=== PATIENT | female | born 1990 | race Caucasian/White ===

== ENCOUNTER 2018-07-09 00:56 | Emergency (ER) | payer MEDICAID, OTHER ==
[~2018-07-09] VITALS: Wt 92.8 kg
[2018-07-09] MEDS ORDERED: SOD CHLORIDE 0.9% 1,000 ML IV STA (01:15)
[2018-07-09] MEDS ORDERED: ONDANSETRON 4 MG INJ IV STA ×2 (01:15→01:37)
[2018-07-09] MEDS ORDERED: KETOROLAC 15 MG INJ IV STA (01:15)
[2018-07-09] MEDS ORDERED: ONDA4TAB14 PO (01:49)
[2018-07-09] MEDS ORDERED: DICY10CA40 PO (01:49)
[2018-07-09] MEDS ORDERED: NITR-58 PO (01:53)
--- NOTE | 2018-07-09 01:53 | ERD ---
ER Documentation Chief Complaint Chief Complaint mid epigastric pain since this afternoon - pt not in distress HPI Patient is a 28-year-old female with no past medical history presents ER for concerns of epigastric pain along with nausea and vomiting that started around 5 PM today. Patient states she has had bloating as well. Patient states presently 15-20 minutes ago she developed diarrhea. Patient denies any fevers or chills. Patient does not recall anything unusual. Patient denies any recent travel. No recent antibiotic use. Patient has no cough, rhinorrhea, headache or neck stiffness. Patient describes her abdominal pain to be localized to the epigastric region. Patient denies any radiation of the pain. No recent travel. No sick contacts. ROS All systems reviewed and are negative except as per history of present illness. Medications Home Meds Active Scripts Nitrofurantoin Monohyd Macrocr* (Macrobid*) 100 Mg Capsr, 100 MG PO BID for 5 Days, CAP Prov:KATINA TRAN PA-C 07/09/18 Ondansetron (Ondansetron Odt) 4 Mg Tab.rapdis, 4 MG PO Q6H PRN for NAUSEA AND/OR VOMITING, #10 TAB Prov:KATINA TRAN PA-C 07/09/18 Dicyclomine HCl (Dicyclomine HCl) 10 Mg Capsule, 10 MG PO TID PRN for ABDOMINAL CRAMPING, #20 CAP Prov:KATINA TRAN PA-C 07/09/18 Allergies Allergies: Coded Allergies: No Known Allergy (Unverified , 05/14/12) PMhx/Soc History of Surgery: No Anesthesia Reaction: No Hx Neurological Disorder: No Hx Respiratory Disorders: No Hx Cardiac Disorders: No Hx Psychiatric Problems: No Hx Miscellaneous Medical Probl: No Hx Alcohol Use: No Hx Substance Use: No Hx Tobacco Use: No Smoking Status: Never smoker FmHx Family History: No diabetes Physical Exam Vitals Physical Exam GENERAL: Well-developed, well-nourished female. Appears in no acute distress. HEAD: Normocephalic, atraumatic. EYES: Pupils are equally reactive bilaterally. EOMs grossly intact. No conjunctival erythema. ENT: Moist mucous membranes. No uvula deviation. No kissing tonsils. NECK: Supple. No meningismus. Normal range of motion of the neck. LUNG: Clear to auscultation bilaterally. No rhonchi, wheezing, rales or coarse breath sounds. HEART: Regular rate and rhythm. No murmurs, rubs or gallops. ABDOMEN: No scars, ecchymosis or rashes noted. Soft,, and nondistended. Minimally tender to palpation in the epigastric region. Positive bowel sounds in all four quadrants. No rebound tenderness, no guarding. (-) McBurney's point tenderness. No CVA tenderness. EXTREMITIES: Equal pulses bilaterally. No peripheral clubbing, cyanosis or edema. No unilateral leg swelling. NEUROLOGIC: Alert and oriented. Moving all four extremities without any difficulty. Normal speech. Steady gait. SKIN: Normal color. Warm and dry. No rashes or lesions. Results 24 hrs Laboratory Tests Test 07/09/18 01:26 07/09/18 01:30 White Blood Count 12.3 10^3/ul Red Blood Count 4.59 10^6/ul Hemoglobin 12.4 g/dl Hematocrit 37.5 % Mean Corpuscular Volume 81.7 fl Mean Corpuscular Hemoglobin 27.0 pg Mean Corpuscular Hemoglobin Concent 33.1 g/dl Red Cell Distribution Width 14.6 % Platelet Count 228 10^3/UL Mean Platelet Volume 10.6 fl Immature Granulocytes % 0.400 % Neutrophils % 86.8 % Lymphocytes % 7.3 % Monocytes % 4.5 % Eosinophils % 0.8 % Basophils % 0.2 % Nucleated Red Blood Cells % 0.0 /100WBC Immature Granulocytes # 0.050 10^3/ul Neutrophils # 10.7 10^3/ul Lymphocytes # 0.9 10^3/ul Monocytes # 0.6 10^3/ul Eosinophils # 0.1 10^3/ul Basophils # 0.0 10^3/ul Nucleated Red Blood Cells # 0.0 10^3/ul Urine Color YELLOW Urine Clarity CLOUDY Urine pH 7.0 Urine Specific [place] 1.029 Urine Ketones NEGATIVE mg/dL Urine Nitrite NEGATIVE mg/dL Urine Bilirubin NEGATIVE mg/dL Urine Urobilinogen 1+ mg/dL Urine Leukocyte Esterase 1+ Cherelle/ul Urine Microscopic RBC 1 /HPF Urine Microscopic WBC 6 /HPF Urine Squamous Epithelial Cells MANY /HPF Urine Bacteria FEW /HPF Urine Mucus MODERATE /HPF Urine Hemoglobin NEGATIVE mg/dL Urine Glucose NEGATIVE mg/dL Urine Total Protein 1+ mg/dl Sodium Level 142 mmol/L Potassium Level 4.2 mmol/L Chloride Level 109 mmol/L Carbon Dioxide Level 20 mmol/L Anion Gap 13 Blood Urea Nitrogen 13 mg/dl Creatinine 0.70 mg/dl Est Glomerular Filtrat Rate mL/min > 60 mL/min Glucose Level 134 mg/dl Calcium Level 9.1 mg/dl Total Bilirubin 0.9 mg/dl Direct Bilirubin 0.00 mg/dl Indirect Bilirubin 0.9 mg/dl Aspartate Amino Transf (AST/SGOT) 41 IU/L Alanine Aminotransferase (ALT/SGPT) 58 IU/L Alkaline Phosphatase 86 IU/L Total Protein 8.0 g/dl Albumin 4.4 g/dl Globulin 3.60 g/dl Albumin/Globulin Ratio 1.22 Lipase 91 U/L POC Beta HCG, Qualitative NEGATIVE Current Medications Medications Dose Sig/Jaylan Start Time Status Last (Trade) Ordered Route PRN Stop Time Admin Dose Reason Admin Sodium 1,000 ml @ Q1H STAT 07/09/18 DC 07/09/18 Chloride 1,000 mls/hr IV 01:15 01:43 07/09/18 03:29 Ondansetron 4 mg ONCE STAT 07/09/18 DC 07/09/18 HCl (Zofran IV 01:15 01:43 Inj) 07/09/18 01:16 Ketorolac 15 mg ONCE STAT 07/09/18 DC 07/09/18 Tromethamine IV 01:15 01:43 (Toradol) 07/09/18 01:16 Ondansetron 4 mg ONCE STAT 07/09/18 DC HCl (Zofran IV 01:37 Inj) 07/09/18 01:38 Procedures/MDM MEDICAL DECISION MAKING: This is a 28-year-old female who presents with epigastric pain, nausea, vomiting and diarrhea which started earlier today.. Vital signs were reviewed. Patient is afebrile. Patient was not hypoxic. IV line was established.Patient was given IV fluids, Zofran and Toradol IV. Blood work was obtained. CBC showed WBC count of 13.3. No evidence of severe anemia. Elevated WBC count is likely due to vomiting. CMP showed no severe electrolyte abnormalities, acidosis, alkalosis, renal failure, kidney failure. UA did show 1+ leukocyte esterase. Patient will be treated for concerns of UTI at this time. Urine test was negative. Upon reexamination, patient reported improvement in symptoms. Patient likely has a viral gastroenteritis. Hydration advised. BRAT diet discussed. DDX included but was not limited to dehydration, acute coronary syndrome, AAA, mesenteric ischemia, lower lobe pneumonia, DKA, bowel perforation, cholecystitis, femi docholithiasis, ascending cholangitis, hepatic abscess, pancreatitis, PUD, splenic rupture, diverticulitis, UTI, pyelonephritis, nephrolithiasis, appendicitis, constipation, , ectopic , PID, ovarian torsion or tubo-ovarian abscess. Patient was nontoxic, non ill appearing prior to dischargw. Vitals signs were within normal limits at time of discharge. PRESCRIPTIONS: Talon Vera DISCHARGE: At this time, patient is stable for discharge and outpatient management. I have instructed the patient to follow-up with his/her primary care physician in 1-2 days. I have instructed the patient to promptly return to the ER at any time for any new or worsening symptoms including increased pain, nausea, vomiting, diarrhea, fever, weakness or LOC. The patient and/or family expressed understanding of and agreement with this plan. All questions were answered. Home care instructions were provided. Departure Diagnosis: Primary Impression: Nausea vomiting and diarrhea Additional Impression: UTI (urinary tract infection) Urinary tract infection type: site unspecified Hematuria presence: with hematuria Qualified Codes: N39.0 - Urinary tract infection, site not specified; R31.9 - Hematuria, unspecified Condition: Fair Patient Instructions: Vomiting And Diarrhea, Nonspecific (Adult) Referrals: [facility] YOU HAVE RECEIVED A MEDICAL SCREENING EXAM AND THE RESULTS INDICATE THAT YOU DO NOT HAVE A CONDITION THAT REQUIRES URGENT TREATMENT IN THE EMERGENCY DEPARTMENT. FURTHER EVALUATION AND TREATMENT OF YOUR CONDITION CAN WAIT UNTIL YOU ARE SEEN I N YOUR DOCTORS OFFICE WITHIN THE NEXT 1-2 DAYS. IT IS YOUR RESPONSIBILITY TO MAKE AN APPOINTMENT FOR FOLOW-UP CARE. IF YOU HAVE A PRIMARY DOCTOR --you should call your primary doctor and schedule an appointment IF YOU DO NOT HAVE A PRIMARY DOCTOR YOU CAN CALL OUR PHYSICIAN REFERRAL HOTLINE AT IF YOU CAN NOT AFFORD TO SEE A PHYSICIAN YOU CAN CHOSE FROM THE FOLLOWING [facility] [address] [facility] [address] [facility] [facility] [address] [facility] [address] [facility]. [facility] [address] [facility]. [facility]. [address] [facility]. [facility] YOU HAVE RECEIVED A MEDICAL SCREENING EXAM AND THE RESULTS INDICATE THAT YOU DO NOT HAVE A CONDITION THAT REQUIRES URGENT TREATMENT IN THE EMERGENCY DEPARTMENT. FURTHER EVALUATION AND TREATMENT OF YOUR CONDITION CAN WAIT UNTIL YOU ARE SEEN IN YOUR DOCTORS OFFICE WITHIN THE NEXT 1-2 DAYS. IT IS YOUR RESPONSIBILITY TO MAKE AN APPOINTMENT FOR FOLOW-UP CARE. IF YOU HAVE A PRIMARY DOCTOR --you should call your primary doctor and schedule and appointment IF YOU DO NOT HAVE A PRIMARY DOCTOR YOU CAN CALL OUR PHYSICIAN REFERRAL HOTLINE AT . IF YOU CAN NOT AFFORD TO SEE A PHYSICIAN YOU CAN CHOSE FROM THE FOLLOWING [facility] INSTITUTIONS: [facility] [id number] [place] [address] [facility] [address] [place], [place] [id number] [place] [address] [address] [place] [address] Additional Instructions: Call your primary care doctor TOMORROW for an appointment during the next 1-2 days.See the doctor sooner or return here if your condition worsens before your appointment time. KATINA TRAN PA-C Jul 09, 2018 01:53
[2018-07-09 02:30] VITALS: BP 115/76; PULSE 85; RESP 18
== END 2018-07-09 02:35 | disposition home or self-care (01) ==
LOC: FTE 00:56
DX: N39.0 Urinary tract infection, site not specified (principal)
CPT/HCPCS: 36415; 80053; 81001; 81025; 83690; 85025; 96361; 96374; 96375; J1885; J2405; J7030; Z7502